=== PATIENT | male | born 1990 | race Caucasian/White ===

== ENCOUNTER 2017-10-03 09:36 | Emergency (ER) | payer OTHER ==
[~2017-10-03] VITALS: Ht 162.6 cm; Wt 63.5 kg
[2017-10-03 09:41] VITALS: Ht 162.6 cm; Wt 63.5 kg
[2017-10-03 11:35] VITALS: BP 118/85
== END 2017-10-03 12:03 | disposition home or self-care (01) ==
LOC: ED 09:36
DX: J45.901 Unspecified asthma with (acute) exacerbation (principal)
CPT/HCPCS: J7512; J7620

== ENCOUNTER 2017-10-18 19:58 | Emergency (ER) | payer OTHER ==
[~2017-10-18] VITALS: Ht 165.1 cm; Wt 59.9 kg
[2017-10-18 20:34] VITALS: Ht 165.1 cm; Wt 59.9 kg
[2017-10-19 00:04] LABS: microscopic required? NO
[2017-10-19 00:07] LABS: BASOPHIL % 0.6 % (0-2); PLATELET COUNT 326 x10^3mcL (130-400)
[2017-10-19 00:08] LABS: RED CELL DISTRIBUTION WIDTH 14.6 % (11.5-14.5)
[2017-10-19 00:15] LABS: CALCIUM 8.1 mg/dL (8.5-10.1); CARBON DIOXIDE 27.2 mmol/L (21-32); CHLORIDE SERUM 105 mmol/L (98-107); CREATININE SERUM 0.7 mg/dL (0.7-1.3); GFR1 > 60 mL/min; GLUCOSE SERUM 116 mg/dL (74-106); POTASSIUM SERUM 3.7 mmol/L (3.5-5.1); SODIUM SERUM 140 mmol/L (136-145)
[2017-10-19 00:20] LABS: ALKALINE PHOSPHATASE 74 U/L (46-116); ALT/SGPT 17 U/L (16-63); AST/SGOT 16 U/L (15-37); BILIRUBIN TOTAL 0.3 mg/dL (0.20-1.00); LIPASE 120 IU/L (73-393); TOTAL PROTEIN, SERUM 6.2 g/dL (6.4-8.2)
[2017-10-19 00:21] LABS: ALBUMIN 3.3 g/dL (3.4-5.0)
[2017-10-19 00:37] LABS: urine erythrocyte NEGATIVE (NEGATIVE)
[2017-10-19 01:47] VITALS: BP 128/87
== END 2017-10-19 01:47 | disposition home or self-care (01) ==
LOC: ED 19:58
PROVIDERS: Emergency Medicine
DX: R10.9 Unspecified abdominal pain (principal); R51 Headache; J45.909 Unspecified asthma, uncomplicated
CPT/HCPCS: 36415; Q0162

== ENCOUNTER 2017-10-31 03:41 | Emergency (ER) | payer OTHER ==
[~2017-10-31] VITALS: Ht 165.1 cm; Wt 60.8 kg
[2017-10-31 03:46] VITALS: Ht 165.1 cm; Wt 60.8 kg
[2017-10-31 04:21] VITALS: BP 106/67
== END 2017-10-31 04:35 | disposition home or self-care (01) ==
LOC: ED 03:41
DX: R10.13 Epigastric pain (principal); J45.909 Unspecified asthma, uncomplicated; K08.89 Other specified disorders of teeth and supporting structures

== ENCOUNTER 2017-10-31 09:04 | Emergency (ER) | payer OTHER ==
[~2017-10-31] VITALS: Ht 165.1 cm; Wt 57.6 kg
[2017-10-31 09:12] VITALS: BP 98/68; Ht 165.1 cm; Wt 57.6 kg
== END 2017-10-31 10:05 | disposition home or self-care (01) ==
LOC: ED 09:04
DX: R51 Headache (principal); J45.909 Unspecified asthma, uncomplicated; Z59.0 Homelessness